=== PATIENT | male | born 1955 | race Caucasian/White ===

== ENCOUNTER 2024-03-30 10:39 | Inpatient (IN) | payer MEDICARE ==
[~2024-03-30 10:39] MED LIST: Iopamidol-370 76% 500 ML MDV (1 ML CHARGE) ONE
[2024-03-30] MEDS ORDERED: Rocuronium Bromide 10 MG/ML (10ML VIAL) ONE (10:48)
[2024-03-30] MEDS ORDERED: Dextrose 50% Abboject 50 ML SYRINGE ONE (10:48)
[2024-03-30] MEDS ORDERED: EPINEPHrine 1 MG/10 ML Abboject SYRINGE ONE (10:48)
[2024-03-30] MEDS ORDERED: Etomidate 40 MG (20 mL) VIAL ONE (10:48)
[2024-03-30] MEDS ORDERED: Midazolam In 0.9 % NaCl/PF 100 ML IVPB SCH (11:00)
[2024-03-30 11:33] LABS: Hematocrit 49.5 % (42.0-52.0); Hemoglobin 15.4 g/dL (14.0-18.0); Mean Corpuscular HGB CONC 31.1 g/dL (32.0-36.0); Mean Corpuscular Hemoglobin 28.7 pg (27.0-31.0); Mean Corpuscular Volume 92.4 fL (78.0-98.0); Mean Platelet Volume 9.6 fL (7.4-10.4); Platelet Count 330 10x3/uL (130-400); RBC Distribution Width 15.8 % (11.5-14.5); Red Blood Cell (RBC) Count 5.36 mill/uL (4.70-6.10)
[2024-03-30 11:40] LABS: Actual Bicarbonate (HCO3a) 21.5 mEq/L (22-28); Analyzer IN Cardio ER; Base Excess (BEa) -2.4 mEq/L (-2.0 to +3.0); CO2 Tension 34.6 mmHg (35.0-45.0); Calcium, Ionized (arterial) 1.15 mmol/L (1.12-1.30); Carboxyhemoglobin (COHb) 1.8 gm% (0.0-3.0); Hematocrit-ABG 44 % (42.0-52.0); Hemoglobin (Hb) 14.8 g/dL (14.0-18.0); O2 Tension (PaO2), arterial 76.8 mmHg (> 80.0); Potassium - ABG Lab 3.62 mmol/L (3.70-5.30); pH, Arterial 7.411 (7.35-7.45)
[2024-03-30 11:42] LABS: Puncture Site RR
[2024-03-30 11:47] LABS: INR-International Normal Ratio 1.1; PTT 28.5 sec (22.9-36.1)
[2024-03-30 11:56] LABS: Troponin I Less than 0.010 ng/mL (< 0.028)
[2024-03-30 11:57] LABS: ALT (SGPT) Less than 5 U/L (8-55); AST (SGOT) 9 U/L (5-34); Albumin 0.9 g/dL (3.4-4.8); Alkaline Phosphatase 17 U/L (40-110); Anion Gap 4 mmol/L (10-20); BUN (Urea Nitrogen) 10 mg/dL (8.4-25.7); Bilirubin, Total 0.2 mg/dL (0.2-1.2); Calc. Creatinine Clearance 0 mL/min (70-130); Calcium 2.5 mg/dL (7.8-10.44); Carbon Dioxide Less than 8 mmol/L (23-31); Chloride 135 mmol/L (98-107); Estimated GFR 128; Glucose 53 mg/dL (80-115); Potassium 1.3 mmol/L (3.5-5.1); Protein, Total 1.9 g/dL (5.8-8.1); Sodium 145 mmol/L (136-145)
[2024-03-30 12:16] LABS: Band 22 % (5-11); Lymphocytes 3 % (21-51); Monocytes 2 % (0-10); Neutrophil 73 % (42-75); Platelet Adequacy Comment Platelets Normal; RBC Morphology Within Normal Limits
[2024-03-30 12:26] LABS: Bacteria/HPF None Seen HPF (None Seen); Bilirubin Negative (Negative); Blood, Urine 2+ (Negative); CAUTI Indications for Culture Alt mental st,lethar; Clarity Clear (Clear); Glucose, Urine (Dipstick) Normal (Negative); Ketone, Urine Negative (Negative); Leukocyte Negative Leu/uL (Negative); Nitrite Negative (Negative); Protein, Urine (Dipstick) 10 mg/dL (Neg-Trace); RBC/HPF 0-3 HPF (0-3); Specific Gravity, Urine 1.018 (1.002-1.036); Squamous Epithelial None Seen HPF (0-3); Urobilinogen Normal mg/dL (Less than 2); WBC/HPF 0-3 HPF (0-3); pH, Urine 6.5 (5.0-9.0)
[2024-03-30 12:34] LABS: Urine Culture Reflex No No
[2024-03-30 12:39] LABS: Amphetamine Not Detected (NotDetected); Barbiturates Screen Not Detected (NotDetected); Benzodiazepine Screen Not Detected (NotDetected); Cocaine Metabolite Screen Not Detected (NotDetected); Methadone Not Detected (NotDetected); Methamphetamine Not Detected (NotDetected); Opiate Screen Not Detected (NotDetected); Oxycodone Screen Not Detected (NotDetected); Phencyclidine (PCP) Not Detected (NotDetected); THC/Cannabinoid Screen Detected (NotDetected); Tricyclic Screen Not Detected (NotDetected)
[2024-03-30 12:45] LABS: Hematocrit 41.1 % (42.0-52.0); Hemoglobin 13.3 g/dL (14.0-18.0); Mean Corpuscular HGB CONC 32.4 g/dL (32.0-36.0); Mean Corpuscular Hemoglobin 28.9 pg (27.0-31.0); Mean Corpuscular Volume 89.3 fL (78.0-98.0); Platelet Count 374 10x3/uL (130-400); RBC Distribution Width 15.6 % (11.5-14.5)
[2024-03-30 12:56] LABS: INR-International Normal Ratio 1.2; PTT 28.6 sec (22.9-36.1)
[2024-03-30 13:02] LABS: Acetaminophen Less than 10 mcg/mL (Less than 10); Alcohol Less than 10.0 mg/dL (Less than 10); Salicylate Less than 8.0 mg/dL (Less than 8.0)
[2024-03-30 13:05] LABS: Troponin I Less than 0.010 ng/mL (< 0.028)
[2024-03-30 13:09] LABS: ALT (SGPT) 16 U/L (8-55); AST (SGOT) 31 U/L (5-34); Albumin 2.7 g/dL (3.4-4.8); Alkaline Phosphatase 62 U/L (40-110); Anion Gap 15 mmol/L (10-20); BUN (Urea Nitrogen) 24 mg/dL (8.4-25.7); Calc. Creatinine Clearance 0 mL/min (70-130); Calcium 8.1 mg/dL (7.8-10.44); Carbon Dioxide 26 mmol/L (23-31); Chloride 102 mmol/L (98-107); Estimated GFR 69; Globulin 3.6 g/dL (2.4-3.5); Glucose 126 mg/dL (80-115); Protein, Total 6.3 g/dL (5.8-8.1); Sodium 139 mmol/L (136-145)
[2024-03-30 13:12] LABS: Band 29 % (5-11); Burr Cells SLIGHT = 2-5 cells HPF (0-1); Lymphocytes 1 % (21-51); Monocytes 12 % (0-10); Neutrophil 58 % (42-75); Platelet Adequacy Comment Platelets Normal; Smudge Cells 2.9 %
[2024-03-30] MEDS ORDERED: CALCIUM GLUC 1 GM/NS 50 ML IV Bag ONE (13:25)
[2024-03-30] MEDS ORDERED: Sodium Chloride 0.9% 100 ML ONE (13:25)
[2024-03-30] MEDS ORDERED: Piperacillin/Tazobactam 3.375 GM VIAL ONE (13:26)
[2024-03-30] MEDS ORDERED: Electrolyte Replacement Protocol 1 EACH IVPB SCH (14:55)
[2024-03-30] MEDS ORDERED: Vancomycin (BATCH) 2 GM/500 ML BAG ONE (15:20)
[2024-03-30 16:06] LABS: Troponin I Less than 0.010 ng/mL (< 0.028)
[2024-03-30 17:29] VITALS: BMI 19.3
[2024-03-30] MEDS: Piperacillin/Tazobactam 3.375 GM in Sodium Chloride 0.9% 100 ML IVPB SCH (18:32)
[2024-03-30 18:36] LABS: Lactic Acid 3.35 mmol/L (0.5-2.2)
[2024-03-30 18:47] LABS: Troponin I 0.014 ng/mL (< 0.028)
[2024-03-30] MEDS ORDERED: Piperacillin/Tazobactam 3.375 GM in Sodium Chloride 0.9% 100 ML IVPB SCH (19:00)
[2024-03-30] MEDS ORDERED: Vancomycin 1.5 GM in Sodium Chloride 0.9% 250 ML 300 ML IVPB SCH (21:00)
[2024-03-30] MEDS: Famotidine 20 MG TAB PO SCH (21:48)
[2024-03-30] MEDS: Lactated Ringer's 1,000 ML IV SCH (21:48)
[2024-03-30] MEDS: methylPREDNISolone Sod Succ 40 MG VIAL IVP SCH (21:48)
[2024-03-30] MEDS: NOREPINEPHRINE 8 MG/250 ML-D5W 250 ML IVPB SCH (23:00)
[2024-03-31] MEDS: Lorazepam 2 MG/ML VIAL SLOW IVP SCH (02:56)
[2024-03-31 04:46] LABS: Hematocrit 40.3 % (42.0-52.0); Hemoglobin 13.2 g/dL (14.0-18.0); Mean Corpuscular HGB CONC 32.8 g/dL (32.0-36.0); Mean Corpuscular Hemoglobin 28.9 pg (27.0-31.0); Mean Corpuscular Volume 88.4 fL (78.0-98.0); Mean Platelet Volume 10.6 fL (7.4-10.4); Platelet Count 360 10x3/uL (130-400); RBC Distribution Width 15.6 % (11.5-14.5); Red Blood Cell (RBC) Count 4.56 mill/uL (4.70-6.10)
[2024-03-31 04:48] LABS: Lactic Acid 3.18 mmol/L (0.5-2.2)
[2024-03-31 05:01] LABS: Vancomycin, Random 16.2 ug/mL (See Comment)
[2024-03-31 05:03] LABS: Anion Gap 13 mmol/L (10-20); BUN (Urea Nitrogen) 21 mg/dL (8.4-25.7); Calc. Creatinine Clearance 56 mL/min (70-130); Calcium 8.2 mg/dL (7.8-10.44); Carbon Dioxide 23 mmol/L (23-31); Chloride 106 mmol/L (98-107); Estimated GFR 74; Glucose 143 mg/dL (80-115); Potassium 4.4 mmol/L (3.5-5.1); Sodium 138 mmol/L (136-145)
[2024-03-31 05:24] LABS: Band 38 % (5-11); Burr Cells SLIGHT = 2-5 cells HPF (0-1); Lymphocytes 3 % (21-51); Monocytes 1 % (0-10); Neutrophil 58 % (42-75); Platelet Adequacy Comment Platelets Normal; Polychromasia SLIGHT = 2-3 cells HPF (0-2)
[2024-03-31] MEDS: Sodium Chloride 0.9% 1,000 ML IV SCH (07:31)
[2024-03-31] MEDS: Enoxaparin 40 MG (0.4 mL) SYRINGE SC SCH (08:03)
[2024-03-31] MEDS: methylPREDNISolone Sod Succ 40 MG VIAL IVP SCH (08:03)
[2024-03-31] MEDS: VANCOMYCIN 1.25 GM/250 ML BAG 1.25 GM in Premix 1 BAG IVPB SCH (08:42)
[2024-03-31 14:13] VITALS: BP 133/87
[2024-03-31] MEDS ORDERED: Iopamidol-370 76% 500 ML MDV (1 ML CHARGE) ONE (14:30)
[2024-04-01 04:59] LABS: Hematocrit 37.4 % (42.0-52.0); Hemoglobin 12.4 g/dL (14.0-18.0); Mean Corpuscular HGB CONC 33.2 g/dL (32.0-36.0); Mean Corpuscular Hemoglobin 28.8 pg (27.0-31.0); Mean Corpuscular Volume 86.8 fL (78.0-98.0); Mean Platelet Volume 10.1 fL (7.4-10.4); Platelet Count 340 10x3/uL (130-400); RBC Distribution Width 15.4 % (11.5-14.5); Red Blood Cell (RBC) Count 4.31 mill/uL (4.70-6.10)
[2024-04-01 05:14] LABS: Anion Gap 10 mmol/L (10-20); BUN (Urea Nitrogen) 20 mg/dL (8.4-25.7); Calc. Creatinine Clearance 87 mL/min (70-130); Calcium 8.2 mg/dL (7.8-10.44); Carbon Dioxide 23 mmol/L (23-31); Chloride 110 mmol/L (98-107); Estimated GFR 100; Glucose 112 mg/dL (80-115); Potassium 3.9 mmol/L (3.5-5.1); Sodium 139 mmol/L (136-145); Vancomycin, Random 12.6 ug/mL (See Comment)
[2024-04-01 05:24] LABS: Anisocytosis SLIGHT = 6-15 cells HPF (0-5); Band 9 % (5-11); Burr Cells MODERATE= 6-15 cells HPF (0-1); Hypochromia SLIGHT = 6-15 cells HPF (0-5); Lymphocytes 1 % (21-51); Microcytosis SLIGHT = 6-15 cells HPF (0-5); Monocytes 6 % (0-10); Neutrophil 84 % (42-75); Platelet Adequacy Comment Platelets Normal; Poikilocytosis MODERATE=16-30 cells HPF (0-5); Polychromasia SLIGHT = 2-3 cells HPF (0-2)
[2024-04-01] MEDS: Vancomycin (BATCH) 1.75 GM in Premix 1 BAG IVPB SCH (09:24)
[2024-04-01 12:34] VITALS: TEMP 98.9
== END 2024-04-01 15:37 | disposition hospice, inpatient (51) | DRG 871 ==
LOC: ERS 10:39 → CCU 14:23
PROVIDERS: ADMIT Hospitalist; ATTEND Family Medicine
PROC: 0BH17EZ Insertion of Endotracheal Airway into Trachea, Via Natural or Artificial Opening (ICD-10-PCS; principal; 2024-03-30)
PROC: 5A1945Z Respiratory Ventilation, 24-96 Consecutive Hours (ICD-10-PCS; 2024-03-30)
PROC: 4A00X4Z Measurement of Central Nervous Electrical Activity, External Approach (ICD-10-PCS; 2024-03-30)
PROC: 3E033XZ Introduction of Vasopressor into Peripheral Vein, Percutaneous Approach (ICD-10-PCS; 2024-03-30)
PROC: 3E03329 Introduction of Other Anti-infective into Peripheral Vein, Percutaneous Approach (ICD-10-PCS; 2024-03-30)
PROC: 04HY32Z Insertion of Monitoring Device into Lower Artery, Percutaneous Approach (ICD-10-PCS; 2024-04-01)
PROC: 4A033R1 Measurement of Arterial Saturation, Peripheral, Percutaneous Approach (ICD-10-PCS; 2024-04-01)
DX: A41.9 Sepsis, unspecified organism (principal); G93.41 Metabolic encephalopathy; J69.0 Pneumonitis due to inhalation of food and vomit; J96.01 Acute respiratory failure with hypoxia; E87.20 Acidosis, unspecified; G91.9 Hydrocephalus, unspecified; G93.89 Other specified disorders of brain; I65.23 Occlusion and stenosis of bilateral carotid arteries; Z51.5 Encounter for palliative care; Z66 Do not resuscitate; E87.6 Hypokalemia; E83.51 Hypocalcemia; E16.2 Hypoglycemia, unspecified; I65.02 Occlusion and stenosis of left vertebral artery; Z86.73 Personal history of transient ischemic attack (TIA), and cerebral infarction without residual deficits
CPT/HCPCS: 36415; 36416; 70450; 70496; 70498; 71045; 71275; 74018; 74178; 80048; 80053; 80202; 80306; 80307; 81001; 82805; 83605; 84145; 84443; 84484; 85025; 85610; 85730; 86850; 86900; 86901; 87040; 87081; 93005; 94002; 94003; 94760; J0171; J0613; J1650; J2060; J2250; J2543; J2919; J3370; J7030; J7120; J7999; Q9967

== ENCOUNTER 2024-04-01 15:47 | Inpatient (IN) | payer OTHER ==
[2024-04-01] MEDS: Lorazepam 2 MG/ML VIAL SLOW IVP PRN (16:16)
[2024-04-01] MEDS: Morphine 2 MG/ML VIAL SLOW IVP PRN (16:16)
[2024-04-01] MEDS: Glycopyrrolate 0.4 MG/ 2 ML VIAL SLOW IVP PRN (16:20)
[2024-04-02] MEDS: Morphine 2 MG/ML VIAL SLOW IVP PRN (21:13)
[2024-04-02 21:18] VITALS: TEMP 97.6
[2024-04-03 06:07] VITALS: BP 138/84
== END 2024-04-03 08:10 | disposition expired | DRG 951 ==
LOC: CCU 15:47 → T4-A 17:51
PROVIDERS: ADMIT Family Medicine; ATTEND Family Medicine
DX: Z51.5 Encounter for palliative care (principal); G93.41 Metabolic encephalopathy; J96.01 Acute respiratory failure with hypoxia; A41.9 Sepsis, unspecified organism; J69.0 Pneumonitis due to inhalation of food and vomit; J18.9 Pneumonia, unspecified organism; E87.20 Acidosis, unspecified; E16.2 Hypoglycemia, unspecified; E83.51 Hypocalcemia; I65.02 Occlusion and stenosis of left vertebral artery; I65.23 Occlusion and stenosis of bilateral carotid arteries; E87.6 Hypokalemia; Z86.73 Personal history of transient ischemic attack (TIA), and cerebral infarction without residual deficits; Z85.21 Personal history of malignant neoplasm of larynx; Z66 Do not resuscitate
CPT/HCPCS: 36416; J2060; J2272